=== PATIENT | male | born 1985 | race Caucasian/White ===

== ENCOUNTER 2017-12-20 16:41 | Outpatient (CLI) | payer OTHER | END 2017-12-20 20:27 | disposition home or self-care (01) | LOC: SRD 16:41 | PROVIDERS: ATTEND Internal Medicine | DX: S53.401A Unspecified sprain of right elbow, initial encounter (principal); X58.XXXA Exposure to other specified factors, initial encounter; Y93.89 Activity, other specified; Y92.89 Other specified places as the place of occurrence of the external cause; Y99.8 Other external cause status ==